=== PATIENT | male | born 1950 | race Caucasian/White ===

== ENCOUNTER 2020-06-15 11:50 | Emergency (ER) | payer OTHER ==
[~2020-06-15] VITALS: Ht 167.6 cm; Wt 78.0 kg
[2020-06-15 12:05] VITALS: Ht 167.6 cm; Wt 78.0 kg
[2020-06-15 15:08] VITALS: BP 161/71
== END 2020-06-15 15:08 ==
LOC: ED 11:50
DX: S63.92XA Sprain of unspecified part of left wrist and hand, initial encounter (principal); I10 Essential (primary) hypertension; R22.1 Localized swelling, mass and lump, neck; W22.8XXA Striking against or struck by other objects, initial encounter; Y93.89 Activity, other specified; Y92.89 Other specified places as the place of occurrence of the external cause; Y99.8 Other external cause status